=== PATIENT | female | born 1990 | race African-American/Black ===

== ENCOUNTER 2019-04-13 11:37 | Day surgery (SDC) | payer MEDICAID ==
[2019-04-13] VITALS (13 sets, daily range): BP systolic 111–133; BP diastolic 67–92; PULSE 65–89; TEMP 98
[~2019-04-13] VITALS: Ht 170.3 cm; Wt 99.3 kg
[~2019-04-13 11:37] MED LIST: ATARAX 25MG25 MG/TAB PO; BACTRIM DS 8001 TAB PO; TRIAMCINOLONE A15 G3 TP
[2019-04-13 12:54] LABS: POTASSIUM 4.2 mmol/L (3.4-5.0)
[2019-04-13 12:55] LABS: INR 1.1 (0.8-3.0); PROTHROMBIN TIME 12.6 SECONDS (9.7-12.8)
[2019-04-13 13:29] LABS: THYROID STIMULATING HORMONE 3.84 uIU/mL (0.465-4.680)
--- NOTE | 2019-04-13 17:00 | NUR ---
Report from Meg Lantigua.
--- NOTE | 2019-04-13 17:30 | NUR ---
Pt to procedure,report to Meg Rizvi
--- NOTE | 2019-04-13 17:37 | NUR ---
SEE MERGE DOCUMENTATION FOR MEDICATION ADMINISTRATION TIMES AND INTRA/POST PROCEDURE SEDATION ASSESSMENTS.
--- NOTE | 2019-04-13 18:30 | NUR ---
REPORT TAKEN FROM TAMI BRIZUELA IN [employer].
--- NOTE | 2019-04-13 20:00 | NUR ---
IV discontinued with catheter tip intact, no phlebitis or infiltration. Pt's dressing at the puncture site was redressed with 2x2 and 2 tegaderms. Site no longer bleeding. Pt continues to complain of soreness at the site. Encouraged warm moist compress for 20 min and Tylenol. Pt aware. Gregoria RT assisted pt with Holter Monitor. Discharge instructions were reviewed with Pt. Pt voices understanding. Pt tolerating intake with no N/V. Pt voiding and ambulating with no complications. After site was re-dressed, pt's stated pain level was decreased. Pt was discharged via w/c to the care of [facility] in private vehicle with discharge instructions in hand.
== END 2019-04-13 20:30 | disposition home or self-care (01) ==
LOC: COL.CARD 11:37 → COL.CAR 11:45 → COL.CARD 20:30
PROVIDERS: Internal Medicine Cardiovascular Disease
DX: I48.0 Paroxysmal atrial fibrillation (principal); Q21.0 Ventricular septal defect; E78.5 Hyperlipidemia, unspecified; F17.210 Nicotine dependence, cigarettes, uncomplicated; I34.0 Nonrheumatic mitral (valve) insufficiency; Z83.3 Family history of diabetes mellitus; Z82.49 Family history of ischemic heart disease and other diseases of the circulatory system
CPT/HCPCS: J1644; J2250; J2704; J7030

== ENCOUNTER 2020-06-17 11:11 | Emergency (ER) | payer MEDICAID ==
[~2020-06-17] VITALS: Ht 170.2 cm; Wt 108.6 kg
[2020-06-17 11:18] VITALS: TEMP 98.5
[2020-06-17 11:54] LABS: COLLECTION METHOD CLEAN CATCH
[2020-06-17 12:11] LABS: PH 7 (5-8); SQUAMOUS EPITHELIAL 0-2 /hpf; URINE APPEARANCE Clear; URINE BACTERIA None Seen /hpf; URINE BILIRUBIN Negative (NEGATIVE); URINE BLOOD Negative (NEGATIVE); URINE COLOR Straw; URINE GLUCOSE Negative (NEGATIVE); URINE KETONE Negative (NEGATIVE); URINE LEUKOCYTE ESTERASE Trace (NEGATIVE); URINE NITRATE Negative (NEGATIVE); URINE PROTEIN(semi-quant) Negative (NEGATIVE); URINE RBC 0-2 /hpf; URINE UROBILINOGEN Negative (NEGATIVE)
[2020-06-17 12:14] LABS: ALBUMIN 4.8 gm/dL (3.5-5.0); BASO % 0.5 % (0.0-2.0); BILIRUBIN,TOTAL 0.4 mg/dL (0.0-1.0); CALCIUM 9.6 mg/dL (8.4-10.2); CREATININE, serum 0.67 (0.52-1.25); EOS # 0.1 (0.0-0.7); EOS % 1.8 % (0-4.0); GRAN # 5.7 (1.4-6.5); GRAN % 72.7 % (42.2-75.2); HEMATOCRIT 38.1 % (37.0-47.0); HEMOGLOBIN 12.3 g/dl (12.5-16.0); LYMPH # 1.4 (1.2-3.4); LYMPH % 17.8 % (20.0-51.0); MEAN CELL VOLUME 82 fl (80.0-100.0); MEAN CORPUSCULAR HEMOGLOBIN 27 pg (27.0-31.0); MEAN CORPUSCULAR HGB CONC 32 g/dl (33.0-37.0); MEAN PLATELET VOLUME 9.6 fl (7.4-10.4); MONO # 0.6 (0.1-0.6); MONO % 7.1 % (1.7-9.3); PLATELET COUNT 285 K/mm3 (130-400); POTASSIUM 3.8 mmol/L (3.4-5.0); RED BLOOD COUNT 4.64 M/mm3 (4.10-5.30); REDCELL DISTRIBUTION WIDTH-CV 15.6 % (11.5-14.5); TOTAL PROTEIN 8.5 gm/dL (6.4-8.2)
[2020-06-17 13:20] VITALS: BP 135/75; PULSE 78
== END 2020-06-17 13:21 | disposition home or self-care (01) ==
LOC: COL.ER 11:11
PROVIDERS: Emergency Medicine
DX: R10.9 Unspecified abdominal pain (principal); R19.7 Diarrhea, unspecified; K59.00 Constipation, unspecified; F17.210 Nicotine dependence, cigarettes, uncomplicated; Z88.6 Allergy status to analgesic agent
CPT/HCPCS: J1885; J2405; J7030; Q9967